=== PATIENT | female | born 1975 | race Caucasian/White ===

== ENCOUNTER 2019-02-13 10:44 | Emergency (ER) | payer OTHER ==
[~2019-02-13] VITALS: Ht 165.1 cm; Wt 86.2 kg
[2019-02-13] MEDS ORDERED: NKM (10:53)
[2019-02-13] MEDS ORDERED: CEPHALEXIN500 MG ORAL (11:25)
[2019-02-13] MEDS ORDERED: BACTRIM DS TAB1 EAC1 ORAL (11:25)
[2019-02-13] MEDS ORDERED: SILVADENE20 GM TP (11:25)
[2019-02-13] MEDS ORDERED: Cephalexin 500mg cap ORAL ONE (11:30)
[2019-02-13] MEDS ORDERED: Tetanus/Diptheria/Pertussis IM ONE (11:30)
--- NOTE | 2019-02-13 11:35 | NUR ---
ED Nurse Note: will continue to monitor patient for 30 minutes post tetanus shot.
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
--- NOTE | 2019-02-13 12:00 | NUR ---
ER DISCHARGE NOTE: Patient is cleared to be discharged per ERMD, pt is aox4, on room air, with stable vital signs. pt was given dc and prescription instructions, pt was able to verbalize understanding, pt is able to ambulate with steady gait. pt took all belongings.
[2019-02-13 13:42] VITALS: BP 125/79
[2019-02-13 13:45] VITALS: BP 125/79
== END 2019-02-13 12:00 | disposition home or self-care (01) ==
LOC: EMR 11:20
DX: L03.115 Cellulitis of right lower limb (principal); T65.91XA Toxic effect of unspecified substance, accidental (unintentional), initial encounter; T24.401A Corrosion of unspecified degree of unspecified site of right lower limb, except ankle and foot, initial encounter; T32.0 Corrosions involving less than 10% of body surface; Z23 Encounter for immunization; Y92.89 Other specified places as the place of occurrence of the external cause
CPT/HCPCS: 90471; 90715; 99284